=== PATIENT | male | born 1950 | race Caucasian/White ===

== ENCOUNTER → 2021-09-02 | Outpatient (CLI) | payer MEDICARE ==
[~2021-09-02] MED LIST: Aspirin EC81 MG PO; WARF5 PO
[2021-09-02 12:25] LABS: Source, Urine Clean Catch
[2021-09-02 16:00] LABS: Appearance, Urine Clear (Clear); Bilirubin, Urine Neg (Neg); Blood, Urine 1+ (Neg); Color, Urine Yellow (P-Yellow); Glucose Qualitative, Urine Neg (Neg); Ketones, Urine Neg (Neg); Leukocyte Esterase, Urine Neg (Neg); Nitrite, Urine Neg (Neg); Protein, Urine Neg (Neg); Urobilinogen, Urine 1+ (Normal); pH, Urine 6.5 (5.0-8.0)
[2021-09-02 16:34] LABS: Bacteria Few /hpf; Squamous Epithelial Cells Rare /hpf (Few); White Blood Cells, Urine 0-2 /hpf (0-5)
== END | disposition home or self-care (01) ==
LOC: LAB SHORT 12:22 → LAB 12:22
PROVIDERS: Family Medicine
DX: D72.829 Elevated white blood cell count, unspecified (principal)
CPT/HCPCS: 81001

== ENCOUNTER → 2021-10-06 | Outpatient (CLI) | payer MEDICARE | END | disposition home or self-care (01) | LOC: LAB SHORT 16:53 → LAB 16:53 | DX: L08.9 Local infection of the skin and subcutaneous tissue, unspecified (principal) | CPT/HCPCS: 87070; 87205 ==

== ENCOUNTER 2021-12-06 07:49 | Day surgery (SDC) | payer MEDICARE ==
[~2021-12-06] VITALS: Ht 193 cm; Wt 113.5 kg
== END 2021-12-06 10:30 | disposition home or self-care (01) ==
LOC: ORSCSDS 07:49
PROVIDERS: Internal Medicine Gastroenterology
PROC: 0DBK8ZX Excision of Ascending Colon, Via Natural or Artificial Opening Endoscopic, Diagnostic (ICD-10-PCS; principal; 2021-12-06 09:00)
PROC: 0DBM8ZX Excision of Descending Colon, Via Natural or Artificial Opening Endoscopic, Diagnostic (ICD-10-PCS; principal; 2021-12-06 09:00)
PROC: 0DBP8ZX Excision of Rectum, Via Natural or Artificial Opening Endoscopic, Diagnostic (ICD-10-PCS; principal; 2021-12-06 09:00)
DX: Z12.11 Encounter for screening for malignant neoplasm of colon (principal); Z86.010 Personal history of colon polyps; D12.2 Benign neoplasm of ascending colon; D12.4 Benign neoplasm of descending colon; K62.1 Rectal polyp; K57.30 Diverticulosis of large intestine without perforation or abscess without bleeding; Z86.718 Personal history of other venous thrombosis and embolism; Z79.01 Long term (current) use of anticoagulants; Z79.82 Long term (current) use of aspirin
CPT/HCPCS: 88305; J2704; J7120

== ENCOUNTER 2023-12-11 15:52 | Emergency (ER) | payer MEDICARE ==
[~2023-12-11] VITALS: Ht 193 cm; Wt 113.4 kg
[2023-12-11 16:07] VITALS: BP 123/79
[2023-12-11] MEDS ORDERED: OZEMPIC1 MG/0.72 (16:09)
== END 2023-12-11 17:47 | disposition home or self-care (01) ==
LOC: ER 15:52
DX: S01.111A Laceration without foreign body of right eyelid and periocular area, initial encounter (principal); Z79.82 Long term (current) use of aspirin; Z79.01 Long term (current) use of anticoagulants; Z79.84 Long term (current) use of oral hypoglycemic drugs; W18.39XA Other fall on same level, initial encounter; Y92.015 Private garage of single-family (private) house as the place of occurrence of the external cause; Y93.89 Activity, other specified
CPT/HCPCS: 12011; 70450; 99283-25